=== PATIENT | male | born 1975 | race Two or more races ===

== ENCOUNTER 2024-02-19 06:42 | Emergency (ER) | payer BC ==
[~2024-02-19] VITALS: Ht 177.8 cm; Wt 99.8 kg
[2024-02-19] MEDS ORDERED: EZALLOR SPRINKL10 MG (07:11)
[2024-02-19] MEDS ORDERED: FENOGLIDE40 MG (07:11)
[2024-02-19] MEDS ORDERED: PROTONIX40 MG (07:11)
[2024-02-19] MEDS ORDERED: 0.9 % SODIUM CHLORIDE 1,000 ML IV STA (07:34)
[2024-02-19] MEDS ORDERED: RINGERS SOLUTION,LACTATED 1,000 ML IV STA (07:35)
[2024-02-19] MEDS ORDERED: MEPERIDINE HCL/PF 50 MG/ML VIAL IM STA (07:36)
[2024-02-19] MEDS ORDERED: HYOSCYAMINE SULFATE 0.125 MG TAB.SUBL SL STA (07:36)
[2024-02-19] MEDS ORDERED: PROMETHAZINE HCL 25 MG/ML AMPUL IM STA (07:37)
[2024-02-19 08:04] LABS: HEMATOCRIT 37.1 % (39.0-48.0); HEMOGLOBIN 12.9 g/dL (13-16.00); MEAN CELL VOLUME 83.3 fL (80.0-100.00); MEAN CORPUSCULAR HEMOGLOBIN 29.1 pg (27.00-32.0); MEAN CORPUSCULAR HGB CONC 34.9 g/dl (32.0-36.0); PLATELET COUNT 290 K/uL (150-450); RED BLOOD COUNT 4.45 M/uL (4.00-6.00); RED CELL DISTRIBUTION WIDTH 13.3 % (11.5-14.5)
[2024-02-19 08:33] LABS: ALBUMIN 3.8 gm/dL (3.4-5.0); BILIRUBIN TOTAL 0.74 mg/dL (0.3-1.2); CALCIUM 9.2 mg/dL (8.5-10.1); CREATININE SERUM 1.01 mg/dL (0.70-1.30); GFR 79.53; GLOBULINA 4.4 G/DL (2.4-3.5); POTASSIUM 3.64 mEq/L (3.5-5.1); TOTAL PROTEIN 8.2 gm/dL (6.4-8.2)
[2024-02-19 08:42] LABS: PH,URINE 5.5 (5.0-8.0); URINE APPEARANCE Clear; URINE BILIRRUBIN Negative (NEGATIVE); URINE BLOOD Trace; URINE COLOR Yellow; URINE GLUCOSE Negative (NEGATIVE); URINE KETONE Trace (NEGATIVE); URINE LEUKOCYTE Negative; URINE NITRATE Negative; URINE PROTEIN Negative (NEGATIVE)
[2024-02-19 08:46] LABS: URINE CAST 1.47 uL (0.0-1.40); URINE EPITHELIAL CELLS 6.6 uL (0.0-38.8); URINE RBC 6.4 uL (0.0-20.8)
[2024-02-19 08:59] LABS: URINE BACTERIA 2.4 uL (0.0-1933)
== END 2024-02-19 13:18 | disposition home or self-care (01) ==
LOC: ER 06:44
DX: R10.9 Unspecified abdominal pain (principal)
CPT/HCPCS: 36415; 74177; Q9965

== ENCOUNTER 2024-02-19 17:43 | Emergency (ER) | payer BC ==
[~2024-02-19] VITALS: Ht 177.8 cm; Wt 79.4 kg
[~2024-02-19 17:43] MED LIST: EZALLOR SPRINKL10 MG; FENOGLIDE40 MG; PROTONIX40 MG
[2024-02-19] MEDS ORDERED: FAMOTIDINE/PF 20 MG in 0.9 % SODIUM CHLORIDE 8 ML IV PUSH ONE (18:00)
[2024-02-19] MEDS ORDERED: levoFLOXacin IN DEXTROSE 5 % 150 ML IV ONE (18:00)
[2024-02-19] MEDS ORDERED: LACTULOSE 10 G/15 ML ML PO ONE (18:00)
[2024-02-19] MEDS ORDERED: ORPHENADRINE CITRATE 30 MG/ML AMPUL IM ONE (18:00)
[2024-02-19] MEDS ORDERED: KETOROLAC TROMETHAMINE 30 MG VIAL IU ONE (19:45)
== END 2024-02-19 20:02 | disposition home or self-care (01) ==
LOC: ER 17:45
PROVIDERS: General Practice
DX: J18.9 Pneumonia, unspecified organism (principal); I10 Essential (primary) hypertension

== ENCOUNTER 2024-03-03 09:13 | Inpatient (IN) | payer BC ==
[~2024-03-03] VITALS: Ht 190.5 cm; Wt 104.3 kg
[2024-03-03 10:58] LABS: HEMOGLOBIN 12.1 g/dL (13-16.00); MEAN CELL VOLUME 85.3 fL (80.0-100.00); MEAN CORPUSCULAR HEMOGLOBIN 28.6 pg (27.00-32.0); MEAN CORPUSCULAR HGB CONC 33.6 g/dl (32.0-36.0); PLATELET COUNT 442 K/uL (150-450); RED BLOOD COUNT 4.22 M/uL (4.00-6.00); RED CELL DISTRIBUTION WIDTH 13.3 % (11.5-14.5)
[2024-03-03 10:59] LABS: INR 1.05; PROTHROMBIN TIME 11.4 SECONDS (9.0-11.5)
[2024-03-03 11:04] LABS: CALCIUM 9.7 mg/dL (8.5-10.1); CREATININE SERUM 0.87 mg/dL (0.70-1.30); GFR 94.47; POTASSIUM 4.24 mEq/L (3.5-5.1)
[2024-03-03] MEDS ORDERED: KETOROLAC TROMETHAMINE 60 MG VIAL IM ONE ×2 (13:00→13:09)
[2024-03-03] MEDS ORDERED: CEFTRIAXONE SODIUM 1,000 MG VIAL IV ONE (13:00)
[2024-03-03] MEDS ORDERED: VANCOMYCIN HCL 500 MG VIAL IV ONE (13:00)
[2024-03-03] MEDS ORDERED: VANCOMYCIN HCL 1,000 MG VIAL ONE (13:09)
[2024-03-03] MEDS ORDERED: CEFTRIAXONE SODIUM 1,000 MG VIAL ONE (13:10)
[2024-03-03 15:43] LABS: ABG PH 7.446 (7.35-7.45); ABG PO2 87.5 mmHg (80-100); ABG pCO2 37.6 mmHg (35-45); BASE EXCESS 1.4 mmol/l; BICARBONATE 25.3 mmol/l (23-25); SaO2 97.1 %; Tco2 26.5 mmol/l
[2024-03-03 15:44] LABS: allen test SATISFACTORY; o2 21 %; puncture site RADIAL RIGHT
[2024-03-03] MEDS ORDERED: SODIUM CHLORIDE 0.45 % 1,000 ML IV SCH (17:00)
[2024-03-03] MEDS ORDERED: PANTOPRAZOLE SODIUM 40 MG TABLET.DR PO SCH (17:14)
[2024-03-03] MEDS ORDERED: MORPHINE SULFATE 4 MG/ML VIAL IV PRN (17:30)
[2024-03-03] MEDS ORDERED: MORPHINE SULFATE 2 MG/ML CARTRIDGE IV PRN (17:45)
[2024-03-03] MEDS ORDERED: VANCOMYCIN HCL 1,000 MG VIAL IV SCH (21:00)
[2024-03-04] MEDS ORDERED: CLINDAMYCIN PHOSPHATE 150 MG/ML (600mg) IV SCH (01:00)
[2024-03-04 01:04] VITALS: BP 109/70; O2SAT 94
[2024-03-04 06:43] LABS: HEMATOCRIT 31.7 % (39.0-48.0); MEAN CELL VOLUME 82.9 fL (80.0-100.00); MEAN CORPUSCULAR HEMOGLOBIN 28.7 pg (27.00-32.0); MEAN CORPUSCULAR HGB CONC 34.7 g/dl (32.0-36.0); PLATELET COUNT 458 K/uL (150-450); RED BLOOD COUNT 3.83 M/uL (4.00-6.00); RED CELL DISTRIBUTION WIDTH 13.3 % (11.5-14.5)
[2024-03-04 06:58] LABS: ERYTHROCYTE SEDIMENTATION RATE 115 mm/hr
[2024-03-04 07:07] LABS: INR 1.1; PARTIAL THROMBOPLASTIN TIME 28.2 SECONDS (22.0-34.0); PROTHROMBIN TIME 11.9 SECONDS (9.0-11.5)
[2024-03-04 07:50] LABS: ALBUMIN 3.1 gm/dL (3.4-5.0); BILIRUBIN TOTAL 0.45 mg/dL (0.3-1.2); CHOL HDL RATIO 3.4 (0-5.0); CREATININE SERUM 0.88 mg/dL (0.70-1.30); GFR 93.23; GLOBULINA 3.7 G/DL (2.4-3.5); MAGNESIUM 1.9 mg/dL (1.8-2.4); POTASSIUM 4.28 mEq/L (3.5-5.1); TOTAL PROTEIN 6.8 gm/dL (6.4-8.2)
[2024-03-04] MEDS ORDERED: MORPHINE SULFATE 2 MG/ML CARTRIDGE IV PRN (08:00)
[2024-03-04 08:02] LABS: C-REACTIVE PROTEIN 11.6 MG/DL (0.00-0.29)
[2024-03-04] MEDS ORDERED: CLONAZEPAM 0.5 MG TABLET PO PRN (08:30)
[2024-03-04 08:58] LABS: PROSTATIC SPECIFIC ANTIGEN 0.573 NG/ML (0.010-4.00); T4 FREE 1.26 NG/ML (0.76-1.46); TSH 0.85 uIU/mL (0.358-3.74)
[2024-03-04] MEDS ORDERED: CEFTRIAXONE SODIUM 1,000 MG VIAL IV SCH (09:00)
[2024-03-04] MEDS ORDERED: FENOFIBRIC ACID 135 MG PO SCH (09:00)
[2024-03-04] MEDS ORDERED: GABAPENTIN 300 MG CAPSULE PO SCH (09:00)
[2024-03-04] MEDS ORDERED: CEFTRIAXONE SODIUM 2,000 MG VIAL IV SCH (09:00)
[2024-03-04] MEDS ORDERED: CRESTOR 20 MG PO SCH (09:00)
[2024-03-04] MEDS ORDERED: ENOXAPARIN SODIUM 40 MG/0.4 ML SYRINGE SUBCUTANEO SCH (09:00)
[2024-03-04] MEDS ORDERED: OLMESARTAN MEDOXOMIL 5 MG PO SCH (09:00)
[2024-03-04] MEDS ORDERED: LACTOBACILLUS ACIDOPHILUS 1 CAP CAP PO SCH (09:00)
[2024-03-04 09:13] LABS: URINE APPEARANCE Cloudy; URINE BILIRRUBIN Negative (NEGATIVE); URINE BLOOD Negative; URINE COLOR Yellow; URINE GLUCOSE Negative (NEGATIVE); URINE KETONE Trace (NEGATIVE); URINE LEUKOCYTE Negative; URINE NITRATE Negative; URINE PROTEIN Trace (NEGATIVE); URINE UROBILINOGEN 0.2 E.U./dl
[2024-03-04 09:14] VITALS: BP 101/62; O2SAT 100
[2024-03-04 09:17] LABS: URINE BACTERIA 12.2 uL (0.0-1933); URINE EPITHELIAL CELLS 10.1 uL (0.0-38.8); URINE RBC 45.9 uL (0.0-20.8); URINE WBC 10.7 uL (0.0-23.2)
[2024-03-04 09:20] LABS: URINE CAST 0.58 uL (0.0-1.40)
[2024-03-04] MEDS ORDERED: METRONIDAZOLE/SODIUM CHLORIDE 100 ML IV SCH (17:00)
[2024-03-04 17:31] VITALS: BP 116/74; O2SAT 95
[2024-03-04] MEDS ORDERED: PIPERACILLIN/TAZOBACTAM SODIUM 4.5 GM in DEXTROSE 5 % IN WATER 100 ML IV SCH (18:00)
[2024-03-04] MEDS ORDERED: BENZONATATE 100 MG CAPSULE PO PRN (21:45)
[2024-03-04] MEDS ORDERED: BENZONATATE 200 MG CAPSULE PO ONE (22:03)
[2024-03-05 02:11] VITALS: BP 113/70; O2SAT 96
[2024-03-05] MEDS ORDERED: BENZONATATE 200 MG CAPSULE PO PRN ×2 (09:00→16:15)
[2024-03-05 10:37] VITALS: BP 104/63; O2SAT 96
[2024-03-05] MEDS ORDERED: CODEINE PHOSPHATE/GUAIFENESIN 5 ML ML PO PRN (16:15)
[2024-03-05 17:18] VITALS: BP 119/80; O2SAT 98
[2024-03-05] MEDS ORDERED: SODIUM CHLORIDE FOR INHALATION 1 VIAL.NEB IH ONE (18:00)
[2024-03-05] MEDS ORDERED: VANCOMYCIN HCL 5 MG/ML REDILUIDO IV SCH (21:00)
[2024-03-06 01:12] VITALS: BP 120/74; O2SAT 97
[2024-03-06 08:00] VITALS: BP 108/72; O2SAT 96
[2024-03-06 08:01] LABS: HEMATOCRIT 31.4 % (39.0-48.0); HEMOGLOBIN 10.7 g/dL (13-16.00); MEAN CELL VOLUME 84.6 fL (80.0-100.00); MEAN CORPUSCULAR HEMOGLOBIN 28.9 pg (27.00-32.0); MEAN CORPUSCULAR HGB CONC 34.2 g/dl (32.0-36.0); PLATELET COUNT 450 K/uL (150-450); RED BLOOD COUNT 3.71 M/uL (4.00-6.00); RED CELL DISTRIBUTION WIDTH 12.9 % (11.5-14.5)
[2024-03-06 08:14] LABS: BILIRUBIN TOTAL 0.27 mg/dL (0.3-1.2); CALCIUM 9.1 mg/dL (8.5-10.1); CREATININE SERUM 0.89 mg/dL (0.70-1.30); GFR 92.02; GLOBULINA 3.8 G/DL (2.4-3.5); MAGNESIUM 1.9 mg/dL (1.8-2.4); PHOSPHOROUS 4.6 mg/dL (2.5-4.9); POTASSIUM 4.33 mEq/L (3.5-5.1); TOTAL PROTEIN 6.8 gm/dL (6.4-8.2)
[2024-03-06 08:33] LABS: C-REACTIVE PROTEIN 5.51 MG/DL (0.00-0.29)
[2024-03-06] MEDS ORDERED: IPRATROPIUM/ALBUTEROL SULFATE 3 ML AMPUL.NEB IH ONE (08:57)
[2024-03-06] MEDS ORDERED: IRON FUM,PS/FOLIC/BCOMP,C NO.9 1 CAP CAPSULE PO SCH (09:00)
[2024-03-06 17:32] VITALS: BP 105/65; O2SAT 98
[2024-03-07 02:55] VITALS: BP 142/79; O2SAT 98
[2024-03-07] MEDS ORDERED: PIPERACILLIN/TAZOBACTAM SODIUM 4.5 GM VIAL IV ONE (07:55)
[2024-03-07 09:03] VITALS: BP 130/76; O2SAT 98
[2024-03-07 16:20] VITALS: BP 109/71; O2SAT 96
[2024-03-08 03:00] VITALS: BP 110/63; O2SAT 95
[2024-03-08] MEDS ORDERED: PIPERACILLIN/TAZOBACTAM SODIUM 4.5 GM VIAL IV ONE (08:10)
[2024-03-08 11:11] VITALS: BP 104/69
[2024-03-08] MEDS ORDERED: MIDAZOLAM HCL 2 MG/2 ML VIAL IV PUSH ONE (18:30)
[2024-03-08] MEDS ORDERED: fentaNYL CITRATE 50 MCG/ML AMPUL IV PUSH ONE (18:30)
[2024-03-08 18:40] VITALS: BP 144/97
[2024-03-08] MEDS ORDERED: VANCOMYCIN HCL 5 MG/ML REDILUIDO IV SCH (21:00)
[2024-03-08] MEDS ORDERED: ACETAMINOPHEN 500 MG GEL..CAP PO PRN (21:00)
[2024-03-09 02:43] VITALS: BP 113/71; O2SAT 96
[2024-03-09 08:29] LABS: HEMATOCRIT 32.1 % (39.0-48.0); HEMOGLOBIN 11.2 g/dL (13-16.00); MEAN CELL VOLUME 82.7 fL (80.0-100.00); MEAN CORPUSCULAR HEMOGLOBIN 28.9 pg (27.00-32.0); MEAN CORPUSCULAR HGB CONC 34.9 g/dl (32.0-36.0); PLATELET COUNT 453 K/uL (150-450); RED BLOOD COUNT 3.88 M/uL (4.00-6.00); RED CELL DISTRIBUTION WIDTH 13.2 % (11.5-14.5)
[2024-03-09 09:02] LABS: ALBUMIN 3.1 gm/dL (3.4-5.0); BILIRUBIN TOTAL 0.24 mg/dL (0.3-1.2); CALCIUM 9.3 mg/dL (8.5-10.1); CREATININE SERUM 0.87 mg/dL (0.70-1.30); GFR 94.47; GLOBULINA 3.6 G/DL (2.4-3.5); POTASSIUM 4.77 mEq/L (3.5-5.1); TOTAL PROTEIN 6.7 gm/dL (6.4-8.2)
[2024-03-09 09:36] VITALS: BP 125/78; O2SAT 97
[2024-03-09 19:06] VITALS: BP 149/96
[2024-03-10 02:11] VITALS: BP 119/64
[2024-03-10 08:45] VITALS: BP 122/78
[2024-03-10 19:37] VITALS: BP 131/85; O2SAT 100
[2024-03-10 20:04] LABS: afb smear Negative (.); afb spe proc Concentration (.)
[2024-03-11 00:52] VITALS: BP 108/62; O2SAT 97
[2024-03-11 08:41] VITALS: BP 117/69
[2024-03-11 19:08] VITALS: BP 115/87
[2024-03-11] MEDS ORDERED: LINEZOLID 600 MG TABLET PO SCH (21:00)
[2024-03-12 02:28] VITALS: BP 109/63; O2SAT 97
[2024-03-12 10:09] VITALS: BP 118/80; O2SAT 97
[2024-03-12 18:02] VITALS: BP 130/82; O2SAT 100
[2024-03-13 01:34] VITALS: BP 113/67; O2SAT 98
[2024-03-13 10:14] VITALS: BP 123/73; O2SAT 96
[2024-03-13 18:23] VITALS: BP 131/84; O2SAT 100
[2024-03-14 01:29] VITALS: BP 129/74; O2SAT 98
[2024-03-14 08:36] VITALS: BP 125/88
[2024-03-14 08:51] LABS: HEMATOCRIT 34.9 % (39.0-48.0); HEMOGLOBIN 11.9 g/dL (13-16.00); MEAN CELL VOLUME 83.7 fL (80.0-100.00); MEAN CORPUSCULAR HEMOGLOBIN 28.5 pg (27.00-32.0); MEAN CORPUSCULAR HGB CONC 34.1 g/dl (32.0-36.0); PLATELET COUNT 351 K/uL (150-450); RED BLOOD COUNT 4.17 M/uL (4.00-6.00); RED CELL DISTRIBUTION WIDTH 13.5 % (11.5-14.5)
[2024-03-14 09:07] LABS: ERYTHROCYTE SEDIMENTATION RATE 37 mm/hr
[2024-03-14 09:37] LABS: ALBUMIN 3.6 gm/dL (3.4-5.0); BILIRUBIN TOTAL 0.34 mg/dL (0.3-1.2); CALCIUM 9.3 mg/dL (8.5-10.1); CREATININE SERUM 0.94 mg/dL (0.70-1.30); GFR 86.4; GLOBULINA 3.6 G/DL (2.4-3.5); MAGNESIUM 1.9 mg/dL (1.8-2.4); PHOSPHOROUS 3.2 mg/dL (2.5-4.9); POTASSIUM 4.05 mEq/L (3.5-5.1); TOTAL PROTEIN 7.2 gm/dL (6.4-8.2)
[2024-03-14 13:45] LABS: PLATELET ESTIMATE NORMAL (NORMAL)
[2024-03-14 18:11] VITALS: BP 120/72
[2024-03-15 01:39] VITALS: BP 134/78; O2SAT 98
[2024-03-15 08:57] VITALS: BP 114/64
[2024-03-15 16:43] VITALS: BP 131/74
[2024-03-15] MEDS ORDERED: PIPERACILLIN/TAZOBACTAM SODIUM 4.5 GM VIAL IV ONE (18:41)
[2024-03-16 01:48] VITALS: BP 125/78; O2SAT 98
[2024-03-16 08:28] LABS: HEMATOCRIT 34.8 % (39.0-48.0); HEMOGLOBIN 12.1 g/dL (13-16.00); MEAN CELL VOLUME 82.9 fL (80.0-100.00); MEAN CORPUSCULAR HEMOGLOBIN 28.8 pg (27.00-32.0); MEAN CORPUSCULAR HGB CONC 34.7 g/dl (32.0-36.0); PLATELET COUNT 327 K/uL (150-450); RED BLOOD COUNT 4.19 M/uL (4.00-6.00); RED CELL DISTRIBUTION WIDTH 13.9 % (11.5-14.5)
[2024-03-16 08:53] LABS: ERYTHROCYTE SEDIMENTATION RATE 20 mm/hr
[2024-03-16 09:14] LABS: ALBUMIN 3.4 gm/dL (3.4-5.0); ALKALINE PHOSPHATASE 32 U/L (50-136); ALT/SGPT 36 U/L (12-78); ANION GAP 9 (10.0-20.0); AST/SGOT 24 U/L (15-37); BILIRUBIN TOTAL 0.38 mg/dL (0.3-1.2); BLOOD UREA NITROGEN 11 mg/dL (7-18); BUN CREA RATIO 13 (7.0-25.0); CALCIUM 9.4 mg/dL (8.5-10.1); CARBON DIOXIDE 29 mEq/L (21-32); CHLORIDE 109 mmol/L (98-107); CREATININE SERUM 0.88 mg/dL (0.70-1.30); GFR 93.23; GLOBULINA 3.6 G/DL (2.4-3.5); GLUCOSE FASTING 89 mg/dL (65-100); OSMOLALITY SERUM 284 MOSM/KG (275-295); POTASSIUM 4.32 mEq/L (3.5-5.1); SODIUM 143 mmol/L (136-145)
[2024-03-16 09:19] LABS: C-REACTIVE PROTEIN < 0.29 MG/DL (0.00-0.29)
[2024-03-16 09:48] VITALS: BP 114/70; O2SAT 97
[2024-03-16] MEDS ORDERED: PIPERACILLIN/TAZOBACTAM SODIUM 4.5 GM VIAL IV ONE (11:58)
[2024-03-16 17:41] VITALS: BP 108/69
[2024-03-17 03:56] VITALS: BP 115/64
[2024-03-17] MEDS ORDERED: AMOX-CLAV 875-1 EACH PO (08:39)
[2024-03-17] MEDS ORDERED: LINEZOLID600 MG PO (08:40)
[2024-03-17] MEDS ORDERED: INTESTINEX680 M1 PO (08:41)
[2024-03-17] MEDS ORDERED: NEURONTIN300 MG PO (08:41)
== END 2024-03-17 08:48 | disposition home or self-care (01) | DRG 166 ==
LOC: ER 09:15 → MEDJ 17:56
PROVIDERS: Emergency Medicine; Internal Medicine; Internal Medicine Infectious Disease; Radiology Vascular & Interventional Radiology; ADMIT Internal Medicine; ATTEND Internal Medicine
PROC: BB24YZZ Computerized Tomography (CT Scan) of Bilateral Lungs using Other Contrast (ICD-10-PCS; 2024-03-03)
PROC: 02HV33Z Insertion of Infusion Device into Superior Vena Cava, Percutaneous Approach (ICD-10-PCS; 2024-03-04)
PROC: 3E04329 Introduction of Other Anti-infective into Central Vein, Percutaneous Approach (ICD-10-PCS; 2024-03-04)
PROC: 0B9 Respiratory System, Drainage (ICD-10-PCS; principal; 2024-03-08)
PROC: 0BBG3ZX Excision of Left Upper Lung Lobe, Percutaneous Approach, Diagnostic (ICD-10-PCS; 2024-03-08)
DX: J85.1 Abscess of lung with pneumonia (principal); J69.0 Pneumonitis due to inhalation of food and vomit; J82.89 Other pulmonary eosinophilia, not elsewhere classified; J94.8 Other specified pleural conditions; D49.1 Neoplasm of unspecified behavior of respiratory system; R91.1 Solitary pulmonary nodule; I10 Essential (primary) hypertension; E78.5 Hyperlipidemia, unspecified